=== PATIENT | male | born 1980 | race African-American/Black ===

== ENCOUNTER 2020-12-26 11:43 | Emergency (ER) | payer SELFPAY ==
[2020-12-26 12:01] VITALS: BP 130/77; PULSE 68; TEMP 98.1; BMI 28.2
[2020-12-26 13:03] LABS: EPI CELLS 3 /uL (0-25.1); HYALINE CASTS 0 /uL (0-3.1); PH,URINE 6.5 (5.0-8.0); URINE APPEARANCE CLEAR; URINE BACTERIA 21 /uL (0-1359); URINE BILIRUBIN NEGATIVE (NEGATIVE); URINE COLOR YELLOW; URINE GLUCOSE (UA) NEGATIVE (NEGATIVE); URINE KETONE TRACE (NEGATIVE); URINE LEUK ESTERASE TRACE (NEGATIVE); URINE NITRITE NEGATIVE (NEGATIVE); URINE PROTEIN 1+ (NEGATIVE); URINE UROBILINOGEN 4.0 E.U/dl mg/dL (0.2-1.0); URINE WBC 8 /uL (0-25.8)
[2020-12-26 13:26] LABS: URINE RBC 66.1 /uL (0-23.9)
== END 2020-12-26 12:49 | disposition home or self-care (01) ==
LOC: JERFT 11:43
DX: L29.8 Other pruritus (principal)
CPT/HCPCS: 36415; 81003; 87086; 87491; 87591; 99283-25

== ENCOUNTER 2021-01-22 11:14 | Emergency (ER) | payer SELFPAY ==
[2021-01-22 11:32] VITALS: BP 108/64; PULSE 60; TEMP 97.9; BMI 28.2
[2021-01-22] MEDS ORDERED: AZITHROMYCIN 250 MG TABLET PO ONE (12:47)
[2021-01-22] MEDS ORDERED: GENTAMICIN SO4 *PEDIATRIC* 20 MG/2 ML VIAL IM ONE (12:47)
[2021-01-22] MEDS ORDERED: GENTAMICIN SO4 80 MG/2 ML VIAL ONE (12:59)
[2021-01-22] MEDS ORDERED: AZITHROMYCIN 500 MG TABLET ONE (12:59)
== END 2021-01-22 13:47 | disposition home or self-care (01) ==
LOC: JERFT 11:14
DX: Z20.2 Contact with and (suspected) exposure to infections with a predominantly sexual mode of transmission (principal)
CPT/HCPCS: 36415; 87491; 87591; 87661; 99284-25

== ENCOUNTER 2024-11-11 08:28 | Emergency (ER) | payer OTHER ==
[2024-11-11 08:36] VITALS: BP 132/82; PULSE 89; RESP 20; TEMP 98.2; BMI 34.7
[2024-11-11 11:05] LABS: EPI CELLS 9 /uL (0-25.1); HYALINE CASTS 0 /uL (0-3.1); URINE APPEARANCE CLEAR; URINE BACTERIA 0 /uL (0-1359); URINE BILIRUBIN NEGATIVE (NEGATIVE); URINE COLOR YELLOW; URINE GLUCOSE (UA) NEGATIVE (NEGATIVE); URINE KETONE NEGATIVE (NEGATIVE); URINE LEUK ESTERASE NEGATIVE (NEGATIVE); URINE NITRITE NEGATIVE (NEGATIVE); URINE PROTEIN 1+ (NEGATIVE); URINE RBC 17 /uL (0-23.9); URINE UROBILINOGEN 0.2 mg/dL (0.2-1.0); URINE WBC 8 /uL (0-25.8)
== END 2024-11-11 14:00 | disposition home or self-care (01) ==
LOC: JER 08:28
DX: M54.50 Low back pain, unspecified (principal)
CPT/HCPCS: 74176-TC; 81003; 99284-25